=== PATIENT | female | born 1985 | race Caucasian/White ===

== ENCOUNTER 2018-06-24 08:30 | Outpatient (CLI) | payer OTHER ==
--- NOTE | 2018-06-24 10:16 | ULT ---
ULTRASOUND PELVIC TRANSVAGINAL WITH DOPPLER: HISTORY: Pelvic pain. COMPARISON: None. FINDINGS: The uterus measures 5.3 x 4.3 x 3.5 cm. Endometrial thickness is 7 mm. The left ovary has been removed. The right ovary measures 2 x 1.8 x 1.5 cm without cyst. Adequate vascular flow to the right ovary. The uterus is retroverted. IMPRESSION: 1. Normal appearance to the right ovary. Prior left oophorectomy. 2. Adequate flow to the right ovary. 3. Normal endometrium. POS: [facility]
== END 2018-06-24 08:31 | disposition home or self-care (01) ==
LOC: BICULT 08:30
PROVIDERS: ATTEND Family Medicine
DX: R10.2 Pelvic and perineal pain (principal); Z90.721 Acquired absence of ovaries, unilateral
CPT/HCPCS: 76856